=== PATIENT | male | born 1950 | race American Indian/Alaskan Native ===

== ENCOUNTER 2021-09-15 06:40 | Emergency (ER) | payer MEDICARE ==
[2021-09-15] MEDS ORDERED: DOPamine 800 MG/D5W 250ML 800 MG/250 ML BAG IV ONE (07:19)
[2021-09-15 07:21] VITALS: BP 118/78
--- NOTE | 2021-09-15 07:26 | Emergency Department Report ---
ED CPR HPI - General Chief Complaint: Cardiac Arrest/CPR Stated Complaint: CARDIAC ARREST Time Seen by Provider: 09/15/21 06:40 Source: EMS, old records reviewed (none) Mode of arrival: Stretcher Limitations: Altered Mental Status, Physical Limitation - History of Present Illness Initial Comments: 71-year-old male with history of end-stage renal disease on dialysis presents to the hospital in cardiopulmonary arrest. Last known well time was 45 minutes prior to transportation van arrival. Transportation van arrived this morning to take patient to his dialysis session and he was unresponsive. Initial urine at scene placed an AED and shock was advised. Upon fuel oil clerk arrival patient was in PEA throughout duration of resuscitation efforts. Patient was intubated at the scene. He received epinephrine x5, 1 amp of sodium bicarb, and 1 amp of ca lcium and arrived with return of spontaneous circulation. Glucose 266 - Related Data Allergies Allergy/AdvReac Type Severity Reaction Status Date / Time No Known Allergies Allergy Verified 09/15/21 07:24 ED Review of Systems ROS: Stated complaint: CARDIAC ARREST Other details as noted in HPI Comment: Unobtainable due to pts medical conditions ED Past Medical Hx - Past Medical History Previous Medical History?: Yes Hx Hypertension: Yes Hx Renal Disease: Yes Additional medical history: dialysis, pacemaker - Surgical History Past Surgical History?: Yes Hx Pacemaker: Yes ED Physical Exam - General Limitations: Other - Other Other exam information: General: Unresponsive Head: Atraumatic Eyes: Pupils fixed and dilated ENT: orally intubated Neck: Normal appearance, no crepitus Chest: Equal breath sounds with bagging, no spontaneous respiration CV: Regular rate and rhythm, right chest wall Vas-Cath Abdomen: Soft, nondistended Back: Normal inspection Extremity: Normal inspection, no spontaneous movement Neuro: GCS equals 3 Psych: Unresponsive Skin: No rash, warm to touch ED Course Vital Signs 09/15/21 09/15/21 07:10 07:16 Pulse Rate 70 Respiratory 16 Rate Blood Pressure 118/78 [Left] O2 Sat by Pulse 90 Oximetry - Central Line Placement Right Femoral Consent Obtained: emergent situation Time Out Performed: Yes Patient Placed on Monitor/Pulse Ox: Yes Prep: mask, gown, gloves Central Line Prep: Chlorhexidine scrub, sterile drapes applied Ultrasound Used for Placement: No Central Line Lumen Inserted: triple Reason for Insertion: Volume Resuscitation Bloods Obtained for Lab: Yes Central Line Position: good blood return, sutured in place with nyl Dressing Applied: Tegaderm Patient Tolerated Procedure: well, no complications Complications: none ED Medical Decision Making - Lab Data Result diagrams: 09/15/21 07:25 09/15/21 07:25 Lab Results 09/15/21 09/15/21 09/15/21 Range/Units 07:25 07:25 07:25 WBC 28.6 H (4.5-11.0) K/mm3 RBC 2.72 L (3.65-5.03) M/mm3 Hgb 7.7 L (11.8-15.2) gm/dl Hct 24.7 L (35.5-45.6) % MCV 91 (84-94) fl MCH 28 (28-32) pg MCHC 31 L (32-34) % RDW 19.1 H (13.2-15.2) % Plt Count 290 (140-440) K/mm3 Lymph # (Auto) [employer] PT 21.4 H (12.2-14.9) Sec. INR 1.59 H (0.87-1.13) APTT 44.2 H (24.2-36.6) Sec. Sodium 138 (137-145) mmol/L Potassium 4.7 (3.6-5.0) mmol/L Chloride 97.2 L (98-107) mmol/L Carbon Dioxide 24 (22-30) mmol/L Anion Gap 22 mmol/L BUN 72 H (9-20) mg/dL Creatinine 4.1 H (0.8-1.3) mg/dL Estimated GFR 17 ml/min BUN/Creatinine Ratio 18 % Glucose 312 H (75-100) mg/dL Lactic Acid (0.7-2.0) mmol/L Calcium 9.5 (8.4-10.2) mg/dL Total Bilirubin 0.90 (0.1-1.2) mg/dL AST 101 H (5-40) units/L ALT 65 H (7-56) units/L Alkaline Phosphatase 209 H (35-129) units/L Troponin T 0.133 H* (0.00-0.029) ng/mL Total Protein 5.5 L (6.3-8.2) g/dL Albumin 2.8 L (3.9-5) g/dL Albumin/Globulin Ratio 1.0 % Triglycerides 77 (2-149) mg/dL Cholesterol 82 (50-199) mg/dL LDL Cholesterol Direct 32 L (50-130) mg/dL HDL Cholesterol 44 (40-59) mg/dL Cholesterol/HDL Ratio 1.86 % // Range/Units 07:25 WBC (4.5-11.0) K/mm3 RBC (3.65-5.03) M/mm3 Hgb (11.8-15.2) gm/dl Hct (35.5-45.6) % MCV (84-94) fl MCH (28-32) pg MCHC (32-34) % RDW (13.2-15.2) % Plt Count (140-440) K/mm3 Lymph # (Auto) PT (12.2-14.9) Sec. INR (0.87-1.13) APTT (24.2-36.6) Sec. Sodium (137-145) mmol/L Potassium (3.6-5.0) mmol/L Chloride (98-107) mmol/L Carbon Dioxide (22-30) mmol/L Anion Gap mmol/L BUN (9-20) mg/dL Creatinine (0.8-1.3) mg/dL Estimated GFR ml/min BUN/Creatinine Ratio % Glucose (75-100) mg/dL Lactic Acid 9.50 H* (0.7-2.0) mmol/L Calcium (8.4-10.2) mg/dL Total Bilirubin (0.1-1.2) mg/dL AST (5-40) units/L ALT (7-56) units/L Alkaline Phosphatase (35-129) units/L Troponin T (0.00-0.029) ng/mL Total Protein (6.3-8.2) g/dL Albumin (3.9-5) g/dL Albumin/Globulin Ratio % Triglycerides (2-149) mg/dL Cholesterol (50-199) mg/dL LDL Cholesterol Direct (50-130) mg/dL HDL Cholesterol (40-59) mg/dL Cholesterol/HDL Ratio % - EKG Data -: EKG Interpreted by Me (6:42 AM, A. fib, right bundle branch block, anterolateral ST depression) EKG shows normal: ST-T waves (Anterolateral ST depression) - EKG Data When compared to previous EKG there are: previous EKG unavailable 09/15/21 07:26 Repeat EKG at 6:51 AM: A. fib right bundle branch block rate [address] depression - Medical Decision Making Patient had multiple episodes of PEA with return of spontaneous circulation after multiple doses of epi and chest compressions x1 hour after ED arrival. Patient also received additional bicarb x2 Amps. Patient had 1 episode of V. fib V. fib and received 200 J defibrillation. Patient did not have return to spontaneous circulation and remained in PEA. Patient had extensive resuscitation efforts prior to ED arrival and 1 hour of resuscitation efforts with intermittent PEA. Patient's advanced directive reviewed and patient did not want to be resuscitated if no signs of recovery, brain damage, or if he required possibly reversible ventilation support. Patient has fixed and dilated pupils with greater than a least an hour and a half of intermittent pulselessness. Time of 7:37 AM after resuscitation efforts patient was noted to have a DNR order as part of his [facility] advanced directive and daughter in the ED and informed of patient's Critical Care Time: Yes Critical care time in (mins) excluding proc time.: 65 Critical care attestation.: If time is entered above; I have spent that time in minutes in the direct care of this critically ill patient, excluding procedure time. Critical Care Time: 65 Minutes of critical care time excluding procedures were used in the care of the patient. I came immediately to the bedside upon patient's arrival. I obtained history from EMS at the bedside. I discussed treatment plan with the nursing team members. I reviewed electronic record. I spoke with family. Patien t required multiple interventions and reassessments. ED Disposition Clinical Impression: Cardiopulmonary arrest, ESRD (end stage renal disease) on dialysis Disposition: 20 Is pt being admited?: No Condition: Poor Referrals: PRIMARY CARE, [Primary Care Provider] - 3-5 Days Time of Disposition: 08:30
[2021-09-15] MEDS ORDERED: EPINEPHrine 1 MG/1 ML 8 MG in SODIUM CHLORIDE 0.9% 250ML 242 ML IV ONE (07:30)
[2021-09-15] MEDS ORDERED: SODIUM CHLORIDE 0.9% 1000 ML 1,000 ML IV ONE (07:30)
[2021-09-15 07:36] LABS: Hematocrit 24.7 % (35.5-45.6); Hemoglobin 7.7 gm/dl (11.8-15.2); Mean Corpuscular HGB Conc 31 % (32-34); Mean Corpuscular Volume 91 fl (84-94); Platelet Count 290 K/mm3 (140-440); Red Blood Count 2.72 M/mm3 (3.65-5.03); Red Cell Distribution Width 19.1 % (13.2-15.2)
[2021-09-15 07:47] LABS: INR 1.59 (0.87-1.13)
[2021-09-15 07:48] LABS: Partial Thromboplastin Time 44.2 Sec. (24.2-36.6)
[2021-09-15 07:54] LABS: Albumin 2.8 g/dL (3.9-5); Calcium 9.5 mg/dL (8.4-10.2)
[2021-09-15 08:22] LABS: Chol/HDL Ratio 1.86 %
[2021-09-15] MEDS ORDERED: ATROPINE 0.1% (1 MG/10 ML) CARDIAC SYRINGE ONE (08:47)
[2021-09-15] MEDS ORDERED: DOPamine DRIP 800 MG/D5W 250ML PreMix IV ONE (08:47)
[2021-09-15] MEDS ORDERED: SODIUM BICARB 8.4% 50 MEQ/50 ML SYRINGE IV ONE (08:47)
[2021-09-15] MEDS ORDERED: EPINEPHrine 1 MG/10 ML SYRINGE ONE (08:47)
[2021-09-15 10:27] LABS: Band Neutrophils # (Manual) 0.9 K/mm3; Basophils % (Manual) 0 % (0.0-1.8); Eosinophils % (Manual) 0 % (0.0-4.3); Hypochromasia 2+; Monocytes % (Manual) 0 % (0.0-7.3); Myelocytes # (Manual) 1.1 K/mm3; Total Cells Counted 100
[2021-09-15 10:28] LABS: Platelet Estimate Consistent w Auto; Spherocytes 1+
--- NOTE | 2021-09-16 11:00 | Electrocardiograph Report ---
[facility] Test Date: 2021-09-15 Test Time: 06:42:58 Pat Name: GRETCHEN BO Department: Room: Gender: M [employer]: NURSE : 1950 Requested By: JONA RAO Order Number: [id number] Reading MD: Samy Clayton Measurements Intervals Candor Rate: 56 P: GA: QRS: 37 QRSD: 167 T: 205 QT: QTc: 0 Interpretive Statements Atrial fibrillation,baseline artifacts noted. Ventricular premature complex Right bundle branch block ST depr, consider ischemia, anterolateral lds No previous ECG available for comparison Electronically Signed On 09-16-2021 10:59:48 EDT by Samy Clayton
--- NOTE | 2021-09-16 11:01 | Electrocardiograph Report ---
[facility] Test Date: 2021-09-15 Test Time: 06:51:36 Pat Name: GRETCHEN BO Department: Room: Gender: M [employer]overed [employer]: NURSE : 1950 Requested By: JONA RAO Order Number: [id number] Reading MD: Samy Clayton Measurements Intervals [place] Rate: 95 P: MT: QRS: 18 QRSD: 217 T: 56 QT: 470 QTc: 593 Interpretive Statements Atrial fibrillation Right bundle branch block Repol abnrm suggests ischemia, diffuse leads Rate is slightly faster when compared to EKG done 9 minutes ago. Electronically Signed On 09-16-2021 11:01:04 EDT by Samy Clayton
== END 2021-09-15 12:04 ==
LOC: ED 06:40
DX: I12.0 Hypertensive chronic kidney disease with stage 5 chronic kidney disease or end stage renal disease (principal); N18.6 End stage renal disease
CPT/HCPCS: 36415; 36556; 80053; 80061; 82140; 84484; 85007; 85025; 85610; 85730; 92950; 93005; 99291; J0171; J0461; J1265; J7050; 94002